=== PATIENT | female | born 1980 | race African-American/Black ===

== ENCOUNTER 2017-02-16 14:41 | Emergency (ER) | payer MEDICAID ==
[~2017-02-16] VITALS: Ht 157.5 cm; Wt 52.2 kg
[~2017-02-16 14:41] MED LIST: PREG75CA PO
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
[2017-02-16] MEDS ORDERED: KETOROLAC TROMETHAMINE 15 MG/ML VIAL ONE (15:10)
--- NOTE | 2017-02-16 15:10 | NUR ---
URINE OBTAINED SENT TO LAB
--- NOTE | 2017-02-16 15:12 | NUR ---
IV ACCESSED RIGHT AC 20G. PATENT AND FLUSHING WELL.
[2017-02-16 15:18] LABS: BASOPHILS # (AUTO) 0.1 /CMM (0.0-0.2); BASOPHILS % (AUTO) 1.4 % (0.0-2.0); EOSINOPHILS # (AUTO) 0.1 /CMM (0.0-0.7); EOSINOPHILS % (AUTO) 1.1 % (0.0-6.0); HEMATOCRIT 40 % (33-45); HEMOGLOBIN 13.4 g/dL (11.5-14.8); LYMPHOCYTES # (AUTO) 2.2 /CMM (0.8-4.8); LYMPHOCYTES % (AUTO) 41.4 % (20.0-44.0); MEAN CORPUSCULAR HEMOGLOBIN 29 PG (26.0-33.0); MEAN CORPUSCULAR HGB CONC 33 g/dl (31.0-36.0); MEAN CORPUSCULAR VOLUME 86 fL (82-100); MONOCYTES # (AUTO) 0.4 /CMM (0.1-1.30); MONOCYTES % (AUTO) 7.1 % (2.0-12.0); NEUTROPHILS # (AUTO) 2.5 /CMM (1.8-8.9); PLATELET COUNT (AUTO) 391 /CMM (150-450); RDW COEFFICIENT OF VARIATION 12.4 (11.5-15.0); RED BLOOD CELL COUNT(AUTO) 4.71 MIL/uL (4.0-5.2); WHITE BLOOD COUNT (AUTO) 5.3 K/uL (4.3-11.0)
[2017-02-16 15:22] LABS: APPEARANCE,URINE Cloudy (CLEAR); BILIRUBIN,URINE SMALL (NEGATIVE); BLOOD, URINE Trace-intact Ery/uL (NEGATIVE); COLOR,URINE Yellow (YELLOW); KETONES,URINE Negative (NEGATIVE); LEUKOCYTE ESTERASE ,URINE Negative (NEGATIVE); NITRITE, URINE Negative (NEGATIVE); PROTEIN,URINE Negative (NEGATIVE); UGLUCOSE Negative (NEGATIVE)
[2017-02-16] MEDS ORDERED: KETOROLAC TROMETHAMINE INJ 30 MG/ML VIAL IV ONE (15:30)
[2017-02-16] MEDS ORDERED: IV NS 0.9% 1,000 ML BAG IV ONE (15:30)
[2017-02-16 15:33] LABS: CALCIUM, SERUM 8.4 mg/dL (8.5-10.1); CREATININE 0.8 mg/dL (0.6-1.3); POTASSIUM 3.6 mmol/L (3.5-5.1)
[2017-02-16 15:39] LABS: BACTERIA,URINE Rare /HPF (None Seen); SQUAMOUS EPITHELIAL CELL,UR Few /HPF (None Seen); WBC,URINE 0-2 /HPF (0-3)
[2017-02-16 15:39] LABS: ALBUMIN 3.9 g/dL (3.4-5.0); BILIRUBIN,DIRECT 0.1 mg/dL (0.0-0.2); BILIRUBIN,TOTAL 0.3 mg/dL (0.2-1.0); TOTAL PROTEIN, SERUM 6.9 g/dL (6.4-8.2)
--- NOTE | 2017-02-16 15:47 | NUR ---
ULTRASOUND AT BEDSIDE.
[2017-02-16 15:51] LABS: PREGNANCY TEST URINE QUAL NEG (NEGATIVE)
[2017-02-16 16:55] VITALS: BP 114/68
--- NOTE | 2017-02-16 19:21 | NUR ---
NOTE AFTER DC FROM ED RECEIVED CALL FROM PT WHOM REQUESTED THAT NO INFORMATION BE DISCUSSED OR RELEASED TO ALIZA ALMENDAREZ. I INFORMED TENA PRASAD IN THE ADMITTING DEPARTMENT TO PLACE A NOTICE ON THE PT'S ACCOUNT TO NOT RELEASE THE PT'S INFORMATION.
== END 2017-02-16 16:57 | disposition home or self-care (01) ==
LOC: ER 14:43
DX: E86.0 Dehydration (principal); R31.29 Other microscopic hematuria; E46 Unspecified protein-calorie malnutrition; R10.9 Unspecified abdominal pain; Z88.1 Allergy status to other antibiotic agents; Z88.8 Allergy status to other drugs, medicaments and biological substances
CPT/HCPCS: 36415; 76856; 80048; 80076; 81001; 83690; 84703; 85025; 87086; 96361; 96374; 99285; A4606; J1885; J7030; Z7610; 81000-TC

== ENCOUNTER 2017-10-29 11:41 | Emergency (ER) | payer BC, OTHER ==
[~2017-10-29] VITALS: Ht 157.5 cm; Wt 55.3 kg
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
[2017-10-29 11:47] VITALS: BP 121/82
--- NOTE | 2017-10-29 12:33 | NUR ---
PT TO XRAY
== END 2017-10-29 13:30 | disposition home or self-care (01) ==
LOC: ER 11:48
DX: R07.89 Other chest pain (principal); F41.9 Anxiety disorder, unspecified; R51 Headache; Z88.1 Allergy status to other antibiotic agents; Z88.8 Allergy status to other drugs, medicaments and biological substances
CPT/HCPCS: 71046; A4606; Z7610